=== PATIENT | female | born 1990 | race African-American/Black ===

== ENCOUNTER 2024-08-13 07:58 | Inpatient (IN) | payer OTHER ==
[2024-08-13] MEDS: DEXTROSE 5%-LACTATED RINGERS 1,000 ML IV SCH (08:25)
[2024-08-13 09:34] LABS: BASO % 0.4 % (0-2.0); EOS % 2.1 % (0-4.5); HEMATOCRIT 21.8 % (32.4-45.2); MCHC 29.5 g/dl (32.0-36.0); MEAN CELL VOLUME 57.9 fl (80-96); MEAN PLT VOLUME 7.8 fl (7.5-11.1); MONO % 8.5 % (3.8-10.2); PLATELET COUNT 328 10^3/uL (134-434); RBC 3.76 M/mm3 (3.60-5.2); RDW 20.6 % (11.6-15.6); WHITE BLOOD COUNT 7.3 K/mm3 (4.0-10.0)
[2024-08-13 09:35] LABS: INR 1.01 (0.83-1.09); PROTHROMBIN TIME (PATIENT) 11.6 SEC (9.7-13.0)
[2024-08-13 09:37] LABS: MCH 17.1 pg (25.7-33.7)
[2024-08-13 09:38] LABS: ACTIVATED PTT 32.7 SECONDS (25.2-36.5)
[2024-08-13 09:39] LABS: HEMOGLOBIN 6.4 GM/dL (10.7-15.3)
[2024-08-13 09:48] LABS: POTASSIUM 3.5 mmol/L (3.5-5.1)
[2024-08-13 09:51] LABS: CALCIUM 8.4 mg/dL (8.5-10.1)
[2024-08-13 09:52] LABS: ALBUMIN 2.1 g/dl (3.4-5.0)
[2024-08-13 09:55] LABS: CREATININE 0.5 mg/dL (0.55-1.3)
[2024-08-13 09:56] LABS: BILIRUBIN,TOTAL 0.5 mg/dL (0.2-1)
[2024-08-13 09:57] LABS: TOT PROT 6.4 g/dl (6.4-8.2)
[2024-08-13 10:02] VITALS: BMI 45.6
[2024-08-13 10:58] LABS: ANISOCYTOSIS 2+; MACROCYTOSIS 0; OVALOCYTE 1+
[2024-08-13] MEDS ORDERED: OXYTOCIN 30 UNITS in 0.9% NS 30 UNIT/500 ML INFUS.BAG IVPB ONE (14:01)
[2024-08-13] MEDS: OXYTOCIN 30 UNITS in 0.9% NS 30 UNIT/500 ML INFUS.BAG IVPB SCH (14:10)
[2024-08-13] MEDS ORDERED: FENTANYL/BUPIVACAINE/NS/PF - PCEA - 50 ML DISP.SYRIN EP ONE (20:05)
[2024-08-13] MEDS: FENTANYL/BUPIVACAINE/NS/PF - PCEA - 50 ML DISP.SYRIN EP SCH (20:30)
[2024-08-13] MEDS ORDERED: NALOXONE HCL 0.4 MG/ML VIAL IVPUSH PRN (20:35)
[2024-08-13] MEDS ORDERED: OXYTOCIN 20 UNITS in 0.9% NS 20 UNIT/1,000 ML INFUS.BAG IV ONE (20:48)
[2024-08-13] MEDS ORDERED: LIDOCAINE HCL 1% PRESERVATIVE FREE - 30ML VIAL ONE (20:48)
[2024-08-13] MEDS: OXYTOCIN 20 UNITS in 0.9% NS 20 UNIT/1,000 ML INFUS.BAG IV SCH (21:05)
[2024-08-13] MEDS ORDERED: MISOPROSTOL 200 MCG TABLET ONE (21:05)
[2024-08-13] MEDS: MISOPROSTOL 200 MCG TABLET PR ONE (21:20)
[2024-08-13] MEDS: METHYLERGONOVINE MALEATE 0.2 MG/1 ML AMP IM ONE (21:30)
[2024-08-13] MEDS ORDERED: ACETAMINOPHEN 325 MG TABLET (FP) PO PRN (21:42)
[2024-08-13] MEDS ORDERED: BISACODYL 10 MG SUPP.RECT RC PRN (21:42)
[2024-08-13] MEDS ORDERED: BENZOCAINE 28 GM HEMORRHOIDAL OINTMENT TP PRN (21:42)
[2024-08-13] MEDS ORDERED: METHYLERGONOVINE MALEATE 0.2 MG/1 ML AMP IM PRN (21:42)
[2024-08-13] MEDS ORDERED: oxyCODONE HCL 5 MG TABLET PO PRN (21:42)
[2024-08-13] MEDS: METHYLERGONOVINE MALEATE 0.2 MG TABLET (FP) PO SCH (22:55)
[2024-08-13] MEDS ORDERED: METHYLERGONOVINE MALEATE 0.2 MG TABLET (FP) PO PRN (23:41)
[2024-08-13] MEDS: IBUPROFEN 600 MG TABLET (FP) PO PRN (23:49)
[2024-08-14 04:34] LABS: HIV INTERPRETATION NEGATIVE (NEGATIVE)
[2024-08-14 08:13] LABS: BASO % 0.3 % (0-2.0); EOS % 0.4 % (0-4.5); HEMATOCRIT 27.7 % (32.4-45.2); HEMOGLOBIN 8.2 GM/dL (10.7-15.3); LYMPH % 19.3 % (8-40); MCHC 29.7 g/dl (32.0-36.0); MEAN CELL VOLUME 62.5 fl (80-96); MEAN PLT VOLUME 7.9 fl (7.5-11.1); MONO % 5.6 % (3.8-10.2); NEUT % 74.4 % (42.8-82.8); PLATELET COUNT 356 10^3/uL (134-434); RBC 4.43 M/mm3 (3.60-5.2); RDW 25.5 % (11.6-15.6); WHITE BLOOD COUNT 12.9 K/mm3 (4.0-10.0)
[2024-08-14] MEDS: FERROUS SO4 325 MG TABLET (FP) PO SCH (08:17)
[2024-08-14 08:33] LABS: MCH 18.6 pg (25.7-33.7)
[2024-08-14] MEDS: PRENATAL VITAMINS W/ FOLIC ACID TABLET (FP) PO SCH (09:50)
[2024-08-14] MEDS: BENZOCAINE 20% 57 GM BOTTLE TP PRN (17:10)
[2024-08-14] MEDS: WITCH HAZEL 50% (TUCKS) 40 PAD/JAR PAD TP PRN (17:11)
[2024-08-14] MEDS ORDERED: SENNOSIDES/DOCUSATE COMBO (SENNA PLUS) TABLET (UD) PO PRN (22:00)
[2024-08-15 10:29] VITALS: BP 131/83; PULSE 92; RESP 17; TEMP 98.1
== END 2024-08-15 17:05 | disposition home or self-care (01) | DRG 560 ==
LOC: JLDR 07:58 → J3W 23:49
PROVIDERS: ADMIT Obstetrics & Gynecology; ATTEND Obstetrics & Gynecology
PROC: 0HQ9XZZ Repair Perineum Skin, External Approach (ICD-10-PCS; principal; 2024-08-13)
PROC: 10E0XZZ Delivery of Products of Conception, External Approach (ICD-10-PCS; 2024-08-13)
DX: O70.0 First degree perineal laceration during delivery (principal); Z3A.40 40 weeks gestation of pregnancy; Z37.0 Single live birth
CPT/HCPCS: 36415; 36430; 59409; 80048; 80053; 85025; 85610; 85730; 86780; 86803; 86850; 86900; 86901; 86922; 87389; P9058